=== PATIENT | male | born 1995 | race African-American/Black ===

== ENCOUNTER 2022-01-11 23:17 | Emergency (ER) | payer SELFPAY ==
[2022-01-11 23:27] VITALS: BP 119/83; PULSE 90; TEMP 98.1; BMI 26.1
[2022-01-13 11:09] LABS: SARS-CoV-2 NAA Not Detected (Not Detected)
== END 2022-01-12 00:05 | disposition home or self-care (01) ==
LOC: JER 23:17
DX: R53.1 Weakness (principal); M79.10 Myalgia, unspecified site
CPT/HCPCS: 87804; 99283-25; C9803; U0003; U0005